=== PATIENT | female | born 1970 | race Caucasian/White ===

== ENCOUNTER → 2023-03-22 | Outpatient (CLI) | payer OTHER, MEDICAID, SELFPAY | END | disposition home or self-care (01) | LOC: PSN 10:27 | PROVIDERS: PCP Internal Medicine; Referring Provider Internal Medicine; Visit Provider Internal Medicine | DX: R00.2 Palpitations (principal) | CPT/HCPCS: 93225; 93226 ==

== ENCOUNTER → 2023-08-29 | Outpatient (CLI) | payer OTHER, MEDICAID, SELFPAY ==
--- NOTE | 2023-08-29 12:49 | ECHOD_ITS ---
Reason For Study: Palpitations Procedure This was a 2D Doppler, Color Flow transthoracic echocardiogram. Exam performed in department. Left Ventricle Normal LV size. Left ventricular systolic function is normal. The estimated ejection fraction is 65 %. Stage 1 diastolic dysfunction. No regional wall motion abnormalities noted. Right Ventricle Normal RV size. Normal systolic function. Atria Normal left atrium. Normal right atrium. Mitral Valve Normal mitral valve. Tricuspid Valve Normal tricuspid valve. Aortic Valve Normal aortic valve. Trisinus/trileaflet aortic valve. Pulmonic Valve Normal pulmonic valve. Great Vessels Normal aortic root. The pulmonary artery is normal size. Normal inferior vena cava. Pericardium/Pleural No pericardial effusion. MMode/2D Measurements & Calculations LVIDd: 4.3 cm IVSd: 1.0 cm Ao root diam: 3.0 cm LVIDs: 2.6 cm LVPWd: 1.00 cm RVDd: 2.8 cm FS: 39.5 % LAV(MOD-bp): 38.6 ml LVAd ap4: 23.5 cm2 SV(MOD-sp4): 37.5 ml LAV(MOD-bp) Indexed: 18.7 ml/m2 LVLd ap4: 7.6 cm LAV(MOD-sp2): 42.1 ml EDV(MOD-sp4): 57.9 ml LAV(MOD-sp4): 36.5 ml EDV(sp4-el): 61.7 ml LVAs ap4: 11.6 cm2 LVLs ap4: 5.7 cm ESV(MOD-sp4): 20.5 ml ESV(sp4-el): 20.3 ml EF(MOD-sp4): 64.7 % EF(sp4-el): 67.2 % SV(sp4-el): 41.4 ml LA A4 area: 15.2 cm2 LA dimension(2D): 3.8 cm RA A4 area: 10.4 cm2 Time Measurements MV dec time: 0.16 sec Doppler Measurements & Calculations MV E max des: 82.3 cm/sec Lat Peak E' Des: 11.0 cm/sec Med Peak E' Des: 7.6 cm/sec MV A max des: 89.7 cm/sec E/E' lat: 7.5 E/E' med: 10.8 MV E/A: 0.92 Ao V2 max: 165.7 cm/sec LV V1 max: 144.2 cm/sec MV dec slope: 530.8 cm/sec2 Ao max P.0 mmHg LV V1 max P.3 mmHg Ao V2 mean: 127.2 cm/sec LV V1 mean P.0 mmHg Ao mean P.8 mmHg LV V1 mean: 105.6 cm/sec Ao V2 VTI: 34.4 cm LV V1 VTI: 28.5 cm AV (velocity ratio): 0.83 PA V2 max: 97.4 cm/sec PI end-d des: 85.8 cm/sec ECHO/Echo Complete Interpretation Summary Normal LV size. Left ventricular systolic function is normal. The estimated ejection fraction is 65 %. Stage 1 diastolic dysfunction. Structurally normal valves. Ordering Physician: Yary Cardenas Referring Physician: Yary Cardenas Performed By: Elana Mathis, JESICA, RVT
--- OUTSIDE RECORDS SUMMARY | 2023-08-29 13:15 | XMS RPT_ITS | CCD ---
Author Name Unknown Address [address] [place] [address] Organization [facility] Care Team Providers Care Church History Professor Name Role Phone Yary Vargas Unavailable Anthony Hodgson Unavailable Gravius, Jayne Unavailable Unavailable Unavailable Unavailable Mar Wood Unavailable Unavailable Eleni Chavez Unavailable Unavailable Unavailable Unavailable No Family, Physician Primary Care Unavailable Yary Vargas DO Unavailable Dr. Anthony Hodgson Unavailable [phone] Analia Tolbert MA Unavailable Unavailable Gravius WARP PLACER, Jayne Unavailable Unavailable Slarb ZYGLO TECHNICIAN, Jada Unavailable Unavailable Unavailable Unavailable Yary Vargas DO Unavailable Emir ZYGLO TECHNICIAN, Caterina Unavailable Unavailable Katherine Schwartz MA Unavailable Unavailable Yary Vargas DO Attending Unavailable Yary Vargas DO Referring Unavailable Yary Vargas DO Consulting Unavailable Jason AMAYA, Erlin Unavailable Unavailable YARY VARGAS Primary Care Unavailab RACHAEL Camargo Attending Unavailable Ok AMAYA, Pako Unavailable Unavailable Yary Vargas DO Primary Care Provider RICARDA SALOMON Referring Unavailable YARY VARGAS Primary Care Unavailab true Allergies Allergy Classification Reported Allergen(s) Allergy Type Date of Onset Reaction(s) Facility (20 sources) Simvastatin; Translations: [Simvastatin *ANTIHYPERLIPID EMICS*] Drug Allergy Chest pain [facility] Work Phone: (3 sources) Chlorhexidine; Translations: [CHLORHEXIDINE GLUCONATE] Drug Allergy 06-23-20 20 Rash [facility] Repository (3 sources) Hmg-Coa Reductase Inhibitors (Statins); Translations: [[id number]-XD A REDUCTASE INHIBITORS] Propensity to adverse reactions to drug (disorder) 01-15-20 Other: See Comments [facility] Repository Medications Completed/Discontinued Medications Medication Drug Class(es) Dates Sig (Normalized) Sig (Original) [id number] 200 actuat albuterol 0.09 mg/actuat metered dose inhaler (20 sources) beta2-Adrenergic Agonist Start: 01-27-2016 End: 02-06-2016 PROAIR HFA, 108 (90 Base)MCG/ACT (Inhalation Aerosol Solution) 1 (one) Aerosol Soln every six hours, as needed for 10 days Quantity: 1 {Inhaler} Refills: 0 Ordered: 27-Jan-2016 Jesus Ta MD Start : 27-Jan-2016 End : 06-Feb-2016 Inactive Comments: Medication taken as needed. Problems Active Problems Problem Classification Problem Date Documented Da te Episodic/Chronic Abdominal pain (20 sources) Epigastric pain; Translations: [Acute epigastric pain] Resolved: 12-27-2016 12-27-2016 Episodic Anxiety disorders (20 sources) Acute stress disorder; Translations: [Stress reaction] 06-07-2020 Chronic Past or Other Problems Problem Classification Problem Date Documented Da te Episodic/Chronic Administrative/social admission (1 source) Drug indicated; Translations: [NSAID long-term use] 12-27-2016 Results Test Name Value Interpretation Reference Range Facil ity Vital Signs Date Time Vital Sign Value Performing Clinician Facility 03-05-2023 11:25-0400 Body height 165.1 cm [facility] Work Phone: 03-05-2023 11:25-0400 Body mass index (BMI) [Ratio] 37.3 kg/m2 [facility] Work Phone: 03-05-2023 11:25-0400 Body surface area Derived from formula 2.08 m2 [facility]; [facility] Work Phone: 03-05-2023 11:25-0400 Body temperature 97 [degF] [facility] Work Phone: 03-05-2023 11:25-0400 Body weight 101.66 kg [facility] Work Phone: 03-05-2023 11:25-0400 Diastolic blood pressure 80 mm[Hg] [facility]; [facility] Work Phone: Encounters Encounter Date Encounter Type Care Provider Facility Start: 04-12-2023 Documentation procedure Mammog everett Coordinator [facility] Start: 04-12-2023 Letter encounter Mammography Coordinator [facility] Department Start: 04-11-2023 End: 04-11-2023 ambulatory [facility] Facility:[facility] Start: 03-05-2023 End: 03-05-2023 Office outpatient visit 15 minutes Yary Milleron DO Work Phone: [facility] Start: 02-26-2023 End: 02-26-2023 Emergency department patient visit YARY VARGAS Facility:[facility] Start: 08-16-2022 End: 08-16-2022 Phone Encounter Yary Milleron DO Work Phone: [facility] Start: 07-20-2022 Review Yary Gaitan n DO Work Phone: [facility] Start: 07-20-2022 End: 08-19-2022 Office outpatient visit 10 minutes Yary Theresa DO Work Phone: [facility] Start: 07-10-2022 End: 07-10-2022 Phone Encounter Yary Milleron DO Work Phone: [facility] Start: 06-28-2022 ambulatory Yaryagapito Vargas DO [facility] Start: 06-26-2022 End: 06-26-2022 Patient encounter status Yaryagapito Milleron DO Work Phone: [facility] Start: 06-26-2022 End: 06-26-2022 Periodic preventive med est patient 40-64yrs Yary Theresa DO Work Phone: [facility] Start: 11-03-2021 End: 11-03-2021 Office outpatient visit 15 minutes Yary Vargas DO Work Phone: [facility] Start: 07-21-2021 Emergency department patient visit Physician Michelle Narvaez [facility] Start: 06-27-2021 End: 06-27-2021 Office outpatient visit 10 minutes Yary Vargas DO Work Phone: [facility] Start: 06-13-2021 End: 06-13-2021 Office outpatient visit 25 minutes Yary Vargas DO Work Phone: [facility] Start: 06-17-2020 End: 06-18-2020 Office outpatient visit 15 minutes Yary Theresa [facility] Start: 06-17-2020 Review Yary Vargas [facility] Start: 06-07-2020 End: 06-07-2020 Office outpatient new 30 minutes Yary Vargas [facility] Start: 12-27-2016 End: 12-27-2016 Office outpatient visit 15 minutes Yary Theresa [facility] Start: 12-21-2016 End: 12-21-2016 Office outpatient visit 25 minutes Yary Vargas [facility] Start: 05-05-2016 End: 05-05-2016 Office outpatient visit 25 minutes Yary Theresa [facility] Start: 01-27-2016 End: 01-27-2016 Patient encounter procedure Yary Vargas [facility] Start: 04-20-2015 End: 04-20-2015 Office outpatient visit 15 minutes Yary Vargas [facility] Start: 04-06-2015 End: 04-06-2015 Office outpatient new 30 minutes Yary Vargas [facility] Patient encounter status Yary Milleron DO Work Phone: [facility] Work Phone: Patient encounter status Erlin Gomez [facility] Work Phone: Patient encounter status Pako Euceda [facility] Work Phone: Procedures Date Procedure Procedure Detail Performing Clinician Start: 04-11-2023 Mammography Mammograph y Coordinator Annual Eye Exam 2012 Janye Gravyaquelin Annual Eye Exam 2012 [facility] Annual Eye Exam 2012 Eleni landa Annual Eye Exam 2012 Analia Tolbert MA Annual Eye Exam 2012 Caterina villegas LPN Annual Eye Exam 2012 Katherine Schwartz MA Annual Eye Exam 2012 Erlin Gomez LPN Annual Eye Exam 2012 Pako Ok ZYGLO TECHNICIAN Appendectomy Jayne Schmitz Plan of Treatment Date Care Activity Detail Author Start: 02-26-2026 DIABETES SCREEN DIABETES SCREEN [facility] Start: 04-11-[address] [facility] Start: 04-13-2023 Influenza vaccination INFLUENZA (#1) [facility] Start: 03-05-2023 Procedure Education Eprescribed prescriptions (G8553) [facility] Work Phone: Start: 03-05-2023 Provider Instructions for Treatment [facility] Work Phone: Start: 08-16-2022 Hepatic function panel HEPATIC FUNCTION PANEL (81816) [facility]; [facility] Work Phone: Start: 08-16-2022 Lipid panel LIPID PANEL (68412) [facility] Work Phone: Start: 08-13-2022 DEPRESSION ASSESSMENT DEPRESSION ASSESSMENT [facility] Start: 07-21-2022 Lipid panel LIPID PANEL (22986) [facility] Work Phone: Start: 07-21-2022 Provider Instructions for Treatment Reviewed Lab [facility]; [facility] Work Phone: Start: 07-20-2022 Procedure Education Eprescribed prescriptions (G8553) [facility]; [facility] Work Phone: Start: 07-20-2022 Provider Instructions for Treatment Reviewed [facility]; [facility] Work Phone: Start: 06-26-2022 Procedure Education Eprescribed prescriptions (G8553) [facility]; [facility] Work Phone: Start: 06-26-2022 25 hydroxy includes fractions if performed CALCIFEDIOL (99250) [facility]; [facility] Work Phone: Start: 06-26-2022 Assay of thyroid stimulating hormone tsh TSH (08440) [facility]; [facility] Work Phone: Start: 06-26-2022 Urnls dip stick/tablet reagent auto microscopy URINALYSIS, W/ MICRO (19426) [facility]; [facility] Work Phone: Start: 06-26-2022 Urine albumin quantitative MICROALBUMIN: CREATININE RATIO (99207) AND (11102) [facility]; [facility] Work Phone: Start: 06-26-2022 Comprehensive metabolic panel METABOLIC PANEL, COMPREHENSIVE (30965) [facility]; [facility] Work Phone: Start: 06-26-2022 Lipid panel LIPID PANEL (14121) [facility] Work Phone: Start: 06-26-2022 Blood count complete auto&auto difrntl wbc CBC W/AUTO DIFF WBC (55055) [facility]; [facility] Work Phone: Start: 11-03-2021 Procedure Education Eprescribed prescriptions (G8553) [facility]; [facility] Work Phone: Start: 11-03-2021 Provider Instructions for Treatment [facility]; [facility] Work Phone: Start: 06-27-2021 Procedure Education Eprescribed prescriptions (G8553) [facility]; [facility] Work Phone: Start: 06-27-2021 Provider Instructions for Treatment [facility]; [facility] Work Phone: Start: 06-13-2021 Procedure Education Eprescribed prescriptions (G8553) [facility]; [facility] Work Phone: Start: 06-13-2021 Provider Instructions for Treatment [facility]; [facility] Work Phone: Start: 06-13-2021 Oncology colorectal screening shauna 10 dna markrs Cologuard - Strool Based DNA Test, CRC SCREEN (20161) [facility]; [facility] Work Phone: Start: 12-22-2020 COVID-19 VACCINE (2 - Moderna series) COVID-19 VACCINE (2 - Moderna series) [facility] Start: 2020 SHINGRIX VACCINE (1 of 2) SHINGRIX VACCINE (1 of 2) [facility] Start: 06-17-2020 Procedure Education Eprescribed prescriptions (G8553) [facility] Work Phone: Start: 06-17-2020 Provider Instructions for Treatment Reviewed Lab [facility] Work Phone: Start: 06-17-2020 Lipid panel LIPID PANEL (51049) [facility] Work Phone: Start: 06-17-2020 25 hydroxy includes fractions if performed CALCIFIDIOL (44000) VIT D 25 [facility] Work Phone: Start: 06-17-2020 Hepatic function panel HEPATIC FUNCTION PANEL (19022) [facility] Work Phone: Start: 06-07-2020 Procedure Education Eprescribed prescriptions (G8553) [facility] Work Phone: Start: 06-07-2020 Provider Instructions for Treatment [facility] Work Phone: Start: 06-07-2020 TSH Qn TSH (36769) [facility] Work Phone: Start: 06-07-2020 Urnls dip stick/tablet reagent auto microscopy URINALYSIS, W/ MICRO (55486) [facility] Work Phone: Start: 06-07-2020 Urine albumin quantitative MICROALBUMIN: CREATININE RATIO (57366) AND (94570) [facility] Work Phone: Start: 06-07-2020 Comprehensive metabolic panel METABOLIC PANEL, COMPREHENSIVE (21120) [facility] Work Phone: Start: 06-07-2020 Blood count complete auto&auto difrntl wbc CBC W/AUTO DIFF WBC (88563) [facility] Work Phone: Start: 06-07-2020 Lipid panel LIPID PANEL (67991) [facility] Work Phone: Start: 06-07-2020 25 hydroxy includes fractions if performed CALCIFEDIOL (40355) [facility] Work Phone: Start: 12-27-2016 Provider Instructions for Treatment [facility] Work Phone: Start: 12-21-2016 Patient Education Chest Pain, Noncardiac: chest pain [facility] Work Phone: Start: 12-21-2016 Provider Instructions for Treatment [facility] Work Phone: Start: 05-05-2016 Patient Education Flu (Influenza) *: flu shot [facility] Work Phone: Start: 05-05-2016 Procedure Education Eprescribed prescriptions (G8553) [facility] Work Phone: Start: 05-05-2016 Provider Instructions for Treatment [facility] Work Phone: Start: 01-27-2016 Procedure Education Eprescribed prescriptions (G8553) [facility] Work Phone: Start: 01-27-2016 Provider Instructions for Treatment [facility] Work Phone: Start: 2015 COLOGUARD (FIT-DNA) COLOGUARD (FIT-DNA) [facility] Start: [address] [facility] Start: 2015 COLORECTAL CANCER SCREENING COLORECTAL CANCER SCREENING [facility] Start: [address] [facility] Start: 2015 FECAL OCCULT BLOOD FECAL OCCULT BLOOD [facility] Start: 2015 LIPID SCREEN LIPID SCREEN [facility] Start: [address] [facility] Start: 04-20-2015 Procedure Education Eprescribed prescriptions (G8553) [facility] Work Phone: Start: 04-20-2015 Provider Instructions for Treatment [facility] Work Phone: Start: 04-06-2015 Procedure Education Eprescribed prescriptions (G8553) [facility] Work Phone: Start: 04-06-2015 Provider Instructions for Treatment [facility] Work Phone: Start: 2000 HPV TEST[address] TESTING [facility] Start: 1991 PAP TESTING PAP TESTING [facility] Start: 1989 Urine microalbumin profile DTAP,TDAP,TD (1 - Tdap) [facility] Start: 1988 HEPATITIS C SCREENING HEPATITIS C SCREENING [facility] Start: 1988 HIV SCREENING HIV SCREENING [facility] Start: 1970 HEPATITIS B (1 of 3 - 3-dose series) HEPATITIS B (1 of 3 - 3-dose series) [facility] Work Phone: [facility] Work Phone: [facility] Work Phone: [facility] Work Phone: [facility] Work Phone: [facility] Work Phone: [facility] Work Phone: [facility] Work Phone: [facility] Work Phone: [facility] Work Phone: [facility] Work Phone: [facility] Work Phone: Immunizations Immunization Date Immunization Notes Care Provider Teresa [facility] 06-25-2022 influenza, injectabl e, quadrivalent, preservative free Yary Vargas DO Work Phone: [facility]; [facility] Work Phone: Payers Date Payer Category Payer Private Health Insurance [facility] [employer] [id number] 2022-Present [phone] [address] [place] [address] HMO [id number] 2021 Private Health Insurance [id number] 2020 Unknown [id number] 1970 Unknown [id number] Unknown Social History Date Type Detail Facility Exercise History: Exercise History: [facility] Work Phone: Start: 02-26-2023 End: 02-27-2023 Living Situation Living Situation [facility] Work Phone: Clinical Notes 01-13-2021 to 04-12-2023 Letter - Coordinator, Mammography - 04/12/2023 7:38 AM EDT Note Date & Type Note Facility 04-12-2023 Miscellaneous Notes April 12, 2023 PID: [id number] Soha Sol [address] [place] [address] Dear Ms. Sol, We are pleased to inform you that the results of your recent breast imaging exam on 04/11/2023 are normal. Early detection of cancer is very important. We also understand recommendations regarding breast cancer screening are controversial. Please discuss with your primary care provider which strategy is best for you and whether a mammogram is right for you. Your imaging studies and report will be kept on file at [facility] as part of your permanent medical record and are available for your continuing care. Thank you for allowing us to help in meeting your health care needs. Sincerely, Dr. Holman Interpreting Radiologist [facility] (Normal over 40) documented in this encounter [facility] 04-11-2023 Note HNO ID: [id number] Author: Judi Pepper RT(R) Service: ? Author Type: Technologist Type: Progress Notes Filed: 04/11/2023 3:51 PM Note Text: Radiology Service Progress Note PATIENT NAME: Soha Sol DATE OF SERVICE: April 11, 2023 TIME: 3:50 PM PATIENT IDENTITY VERIFICATION COMPLETED USING TWO (2) IDENTIFIERS: Name and Date of confirmed by patient verbally. FALL SCREENING: Has the patient had 2 falls in the last year or 1 fall with injury or currently using an Ambulatory Assistive Device (Walker, Cane, Wheelchair, Crutches, etc.)? No PATIENT GENDER DATA: Female. status: : No status: NO. PATIENT RELEVANT IMPLANT DATA REVIEWED: Yes RADIOLOGY DEPARTMENT: Mammography PERIPHERAL IV DATA: Not applicable SIGNED BY: RT William(R) April 11, 2023 3:50 PM [facility] 07-21-2021 Note HNO ID: [id number] Author: BIJAN Culver Service: Radiology Author Type: Technologist Type: Progress Notes Filed: 07/21/2021 2:35 PM Note Text: Radiology Service Progress Note PATIENT NAME: Soha Sol DATE OF SERVICE: July 21, 2021 TIME: 2:35 PM PATIENT IDENTITY VERIFICATION COMPLETED USING TWO (2) IDENTIFIERS: Name and Date of confirmed by patient verbally. FALL SCREENING: Has the patient had 2 falls in the last year or 1 fall with injury or currently using an Ambulatory Assistive Device (Walker, Cane, Wheelchair, Crutches, etc.)? No PATIENT GENDER DATA: Female. status: : No status: NO. PATIENT RELEVANT IMPLANT DATA REVIEWED: Not Applicable RADIOLOGY DEPARTMENT: Mammography PERIPHERAL IV DATA: Not applicable SIGNED BY: BIJAN Culver July 21, 2021 2:35 PM [facility] 03-25-2021 Note HNO ID: [id number] Author: BIJAN Louis Service: Radiology Author Type: Automotive Engineering Teacher Type: Progress Notes Filed: 03/25/2021 5:20 PM Note Text: Radiology Service Progress Note PATIENT NAME: Soha Sol DATE OF SERVICE: March 25, 2021 TIME: 5:19 PM PATIENT IDENTITY VERIFICATION COMPLETED USING TWO (2) IDENTIFIERS: Name and Date of confirmed by patient verbally. FALL SCREENING: Has the patient had 2 falls in the last year or 1 fall with injury or currently using an Ambulatory Assistive Device (Walker, Cane, Wheelchair, Crutches, etc.)? No PATIENT GENDER DATA: Female. status: : No status: NO. PATIENT RELEVANT IMPLANT DATA REVIEWED: Yes RADIOLOGY DEPARTMENT: MR; Exam(s) Completed: Lower MSK: Knee, left PERIPHERAL IV DATA: Not applicable SIGNED BY: BIJAN Louis March 25, 2021 5:19 PM [facility] 01-13-2021 Note HNO ID: [id number] Author: BIJAN Curiel Service: Radiology Author Type: Clinical Automotive Engineering Teacher Type: Progress Notes Filed: 01/13/2021 9:20 AM Note Text: Radiology Service Progress Note PATIENT NAME: Soha Sol DATE OF SERVICE: January 13, 2021 TIME: 9:20 AM PATIENT IDENTITY VERIFICATION COMPLETED USING TWO (2) IDENTIFIERS: Name and Date of confirmed by patient verbally and Name and Date of confirmed by identification band. FALL SCREENING: Has the patient had 2 falls in the last year or 1 fall with injury or currently using an Ambulatory Assistive Device (Walker, Cane, Wheelchair, Crutches, etc.)? Yes, Patient High Risk for Falls What interventions were put in place to prevent falls during this visit? Instructed Patient to Call for Help if Needed, Offered Assistance with Transfers/Clothing, Instructed Patient to Remain Seated (Not on Exam Table) Until Exam, and Increased Observations by Caregivers PATIENT GENDER DATA: Female. status: : No status: NO. PATIENT RELEVANT IMPLANT DATA REVIEWED: Not Applicable RADIOLOGY DEPARTMENT: Ultrasound PERIPHERAL IV DATA: Not applicable SIGNED BY: BIJAN Curiel January 13, 2021 9:20 AM [facility] 01-13-2021 Note HNO ID: [id number] Author: BIJAN Card Service: Radiology Author Type: Clinical Automotive Engineering Teacher Type: Progress Notes Filed: 01/13/2021 8:40 AM Note Text: Radiology Service Progress Note PATIENT NAME: Soha Sol DATE OF SERVICE: January 13, 2021 TIME: 8:39 AM PATIENT IDENTITY VERIFICATION COMPLETED USING TWO (2) IDENTIFIERS: Name and Date of confirmed by patient verbally. FALL SCREENING: Has the patient had 2 falls in the last year or 1 fall with injury or currently using an Ambulatory Assistive Device (Walker, Cane, Wheelchair, Crutches, etc.)? Yes, Patient High Risk for Falls What interventions were put in place to prevent falls during this visit? Offered Assistance with Transfers/Clothing and Increased Observations by Caregivers PATIENT GENDER DATA: Female. status: : No status: NO. PATIENT RELEVANT IMPLANT DATA REVIEWED: Not Applicable RADIOLOGY DEPARTMENT: General X-ray: Exam(s) Completed: Pelvis X-Ray: Pelvis with Hip Left and Wt. Bearing PERIPHERAL IV DATA: Not applicable SIGNED BY: BIJAN Card January 13, 2021 8:39 AM [facility] Work Phone: Instructions* Name Dates Details How to Access Health Informa tion Online using Patient Portal and [employer] Apps Indication:BMI 38.0-38.9,adult Start:03-Nov-2021 Instruction Type:Patient Education Patient Instructions Indication:BMI 38.0-38.9,adult Start:03-Nov-2021 Instruction Type:Provider Instructions for Treatment Patient Instructions Indication:Non-smoker Start:27-Jun-2021 Instruction Type:Provider Instructions for Treatment How to Access Health Informa tion Online using Patient Portal and [employer] Apps Indication:Non-smoker Start:27-Jun-2021 Instruction Type:Patient Education Patient Instructions Indication:BMI 38.0-38.9,adult Start:13-Jun-2021 Instruction Type:Provider Instructions for Treatment How to Access Health Informa tion Online using Patient Portal and [employer] Apps Indication:BMI 38.0-38.9,adult Start:13-Jun-2021 Instruction Type:Patient Education How to access health informa tion online Indication:Non-smoker Start:17-Jun-2020 Instruction Type:Patient Education How to access health informa tion online - Detail Indication:Non-smoker Start:17-Jun-2020 Instruction Type:Patient Education Patient Instructions Indication:Non-smoker Start:17-Jun-2020 Instruction Type:Provider Instructions for Treatment How to access health informa tion online Indication:Non-smoker Start:07-Jun-2020 Instruction Type:Patient Education How to access health informa tion online - Detail Indication:Non-smoker Start:07-Jun-2020 Instruction Type:Patient Education Patient Instructions Indication:Non-smoker Start:07-Jun-2020 Instruction Type:Provider Instructions for Treatment How to access health informa tion online Indication:Non-smoker Start:27-Dec-2016 Instruction Type:Patient Education How to access health informa tion online - Detail Indication:Non-smoker Start:27-Dec-2016 Instruction Type:Patient Education Patient Instructions Indication:Non-smoker Start:27-Dec-2016 Instruction Type:Provider Instructions for Treatment How to access health informa tion online Indication:Chest pain at rest Start:21-Dec-2016 Instruction Type:Patient Education How to access health informa tion online - Detail Indication:Chest pain at rest Start:21-Dec-2016 Instruction Type:Patient Education Patient Instructions Indication:Chest pain at rest Start:21-Dec-2016 Instruction Type:Provider Instructions for Treatment How to access health informa tion online Indication:GERD (gastroesophageal reflux disease) Start:05-May-2016 Instruction Type:Patient Education How to access health informa tion online - Detail Indication:GERD (gastroesophageal reflux disease) Start:05-May-2016 Instruction Type:Patient Education Patient Instructions Indication:GERD (gastroesophageal reflux disease) Start:05-May-2016 Instruction Type:Provider Instructions for Treatment How to access health informa tion online Indication:Cough Start:27-Jan-2016 Instruction Type:Patient Education How to access health informa tion online - Detail Indication:Cough Start:27-Jan-2016 Instruction Type:Patient Education Patient Instructions Indication:Cough Start:27-Jan-2016 Instruction Type:Provider Instructions for Treatment How to access health informa tion online Indication:Obesity Start:20-Apr-2015 Instruction Type:Patient Education How to access health informa tion online - Detail Indication:Obesity Start:20-Apr-2015 Instruction Type:Patient Education Patient Instructions Indication:Obesity Start:20-Apr-2015 Instruction Type:Provider Instructions for Treatment How to access health informa tion online Indication:Hypertension Start:06-Apr-2015 Instruction Type:Patient Education How to access health informa tion online - Detail Indication:Hypertension Start:06-Apr-2015 Instruction Type:Patient Education Patient Instructions Indication:Hypertension Start:06-Apr-2015 Instruction Type:Provider Instructions for Treatment [facility]; [facility] Work Phone: Instructions* Name Dates Details Patient Instructions Indication:Non-smoker Start:26-Jun-2022 Instruction Type:Provider Instructions for Treatment How to Access Health Informa tion Online using Patient Portal and [employer] Apps Indication:Non-smoker Start:26-Jun-2022 Instruction Type:Patient Education How to Access Health Informa tion Online using Patient Portal and [employer] Apps Indication:BMI 38.0-38.9,adult Start:03-Nov-2021 Instruction Type:Patient Education Patient Instructions Indication:BMI 38.0-38.9,adult Start:03-Nov-2021 Instruction Type:Provider Instructions for Treatment Patient Instructions Indication:Non-smoker Start:27-Jun-2021 Instruction Type:Provider Instructions for Treatment How to Access Health Informa tion Online using Patient Portal and [employer] Apps Indication:Non-smoker Start:27-Jun-2021 Instruction Type:Patient Education Patient Instructions Indication:BMI 38.0-38.9,adult Start:13-Jun-2021 Instruction Type:Provider Instructions for Treatment How to Access Health Informa tion Online using Patient Portal and [employer] Apps Indication:BMI 38.0-38.9,adult Start:13-Jun-2021 Instruction Type:Patient Education How to access health informa tion online Indication:Non-smoker Start:17-Jun-2020 Instruction Type:Patient Education How to access health informa tion online - Detail Indication:Non-smoker Start:17-Jun-2020 Instruction Type:Patient Education Patient Instructions Indication:Non-smoker Start:17-Jun-2020 Instruction Type:Provider Instructions for Treatment How to access health informa tion online Indication:Non-smoker Start:07-Jun-2020 Instruction Type:Patient Education How to access health informa tion online - Detail Indication:Non-smoker Start:07-Jun-2020 Instruction Type:Patient Education Patient Instructions Indication:Non-smoker Start:07-Jun-2020 Instruction Type:Provider Instructions for Treatment How to access health informa tion online Indication:Non-smoker Start:27-Dec-2016 Instruction Type:Patient Education How to access health informa tion online - Detail Indication:Non-smoker Start:27-Dec-2016 Instruction Type:Patient Education Patient Instructions Indication:Non-smoker Start:27-Dec-2016 Instruction Type:Provider Instructions for Treatment How to access health informa tion online Indication:Chest pain at rest Start:21-Dec-2016 Instruction Type:Patient Education How to access health informa tion online - Detail Indication:Chest pain at rest Start:21-Dec-2016 Instruction Type:Patient Education Patient Instructions Indication:Chest pain at rest Start:21-Dec-2016 Instruction Type:Provider Instructions for Treatment How to access health informa tion online Indication:GERD (gastroesophageal reflux disease) Start:05-May-2016 Instruction Type:Patient Education How to access health informa tion online - Detail Indication:GERD (gastroesophageal reflux disease) Start:05-May-2016 Instruction Type:Patient Education Patient Instructions Indication:GERD (gastroesophageal reflux disease) Start:05-May-2016 Instruction Type:Provider Instructions for Treatment How to access health informa tion online Indication:Cough Start:27-Jan-2016 Instruction Type:Patient Education How to access health informa tion online - Detail Indication:Cough Start:27-Jan-2016 Instruction Type:Patient Education Patient Instructions Indication:Cough Start:27-Jan-2016 Instruction Type:Provider Instructions for Treatment How to access health informa tion online Indication:Obesity Start:20-Apr-2015 Instruction Type:Patient Education How to access health informa tion online - Detail Indication:Obesity Start:20-Apr-2015 Instruction Type:Patient Education Patient Instructions Indication:Obesity Start:20-Apr-2015 Instruction Type:Provider Instructions for Treatment How to access health informa tion online Indication:Hypertension Start:06-Apr-2015 Instruction Type:Patient Education How to access health informa tion online - Detail Indication:Hypertension Start:06-Apr-2015 Instruction Type:Patient Education Patient Instructions Indication:Hypertension Start:06-Apr-2015 Instruction Type:Provider Instructions for Treatment [facility]; [facility] Work Phone: Instructions* Name Dates Details Patient Instructions Indication:Non-smoker Start:26-Jun-2022 Instruction Type:Provider Instructions for Treatment How to Access Health Informa tion Online using Patient Portal and [employer] Apps Indication:Non-smoker Start:26-Jun-2022 Instruction Type:Patient Education How to Access Health Informa tion Online using Patient Portal and [employer] Apps Indication:BMI 38.0-38.9,adult Start:03-Nov-2021 Instruction Type:Patient Education Patient Instructions Indication:BMI 38.0-38.9,adult Start:03-Nov-2021 Instruction Type:Provider Instructions for Treatment Patient Instructions Indication:Non-smoker Start:27-Jun-2021 Instruction Type:Provider Instructions for Treatment How to Access Health Informa tion Online using Patient Portal and [employer] Apps Indication:Non-smoker Start:27-Jun-2021 Instruction Type:Patient Education Patient Instructions Indication:BMI 38.0-38.9,adult Start:13-Jun-2021 Instruction Type:Provider Instructions for Treatment How to Access Health Informa tion Online using Patient Portal and [employer] Apps Indication:BMI 38.0-38.9,adult Start:13-Jun-2021 Instruction Type:Patient Education How to access health informa tion online Indication:Non-smoker Start:17-Jun-2020 Instruction Type:Patient Education How to access health informa tion online - Detail Indication:Non-smoker Start:17-Jun-2020 Instruction Type:Patient Education Patient Instructions Indication:Non-smoker Start:17-Jun-2020 Instruction Type:Provider Instructions for Treatment How to access health informa tion online Indication:Non-smoker Start:07-Jun-2020 Instruction Type:Patient Education How to access health informa tion online - Detail Indication:Non-smoker Start:07-Jun-2020 Instruction Type:Patient Education Patient Instructions Indication:Non-smoker Start:07-Jun-2020 Instruction Type:Provider Instructions for Treatment How to access health informa tion online Indication:Non-smoker Start:27-Dec-2016 Instruction Type:Patient Education How to access health informa tion online - Detail Indication:Non-smoker Start:27-Dec-2016 Instruction Type:Patient Education Patient Instructions Indication:Non-smoker Start:27-Dec-2016 Instruction Type:Provider Instructions for Treatment How to access health informa tion online Indication:Chest pain at rest Start:21-Dec-2016 Instruction Type:Patient Education How to access health informa tion online - Detail Indication:Chest pain at rest Start:21-Dec-2016 Instruction Type:Patient Education Patient Instructions Indication:Chest pain at rest Start:21-Dec-2016 Instruction Type:Provider Instructions for Treatment How to access health informa tion online Indication:GERD (gastroesophageal reflux disease) Start:05-May-2016 Instruction Type:Patient Education How to access health informa tion online - Detail Indication:GERD (gastroesophageal reflux disease) Start:05-May-2016 Instruction Type:Patient Education Patient Instructions Indication:GERD (gastroesophageal reflux disease) Start:05-May-2016 Instruction Type:Provider Instructions for Treatment How to access health informa tion online Indication:Cough Start:27-Jan-2016 Instruction Type:Patient Education How to access health informa tion online - Detail Indication:Cough Start:27-Jan-2016 Instruction Type:Patient Education Patient Instructions Indication:Cough Start:27-Jan-2016 Instruction Type:Provider Instructions for Treatment How to access health informa tion online Indication:Obesity Start:20-Apr-2015 Instruction Type:Patient Education How to access health informa tion online - Detail Indication:Obesity Start:20-Apr-2015 Instruction Type:Patient Education Patient Instructions Indication:Obesity Start:20-Apr-2015 Instruction Type:Provider Instructions for Treatment How to access health informa tion online Indication:Hypertension Start:06-Apr-2015 Instruction Type:Patient Education How to access health informa tion online - Detail Indication:Hypertension Start:06-Apr-2015 Instruction Type:Patient Education Patient Instructions Indication:Hypertension Start:06-Apr-2015 Instruction Type:Provider Instructions for Treatment [facility]; [facility] Work Phone: Instructions* Name Dates Details Patient Instructions Indication:BMI 37.0-37.9, adult Start:20-Jul-2022 Instruction Type:Provider Instructions for Treatment How to Access Health Informa tion Online using Patient Portal and [employer] Apps Indication:BMI 37.0-37.9, adult Start:20-Jul-2022 Instruction Type:Patient Education Patient Instructions Indication:Non-smoker Start:26-Jun-2022 Instruction Type:Provider Instructions for Treatment How to Access Health Informa tion Online using Patient Portal and [employer] Apps Indication:Non-smoker Start:26-Jun-2022 Instruction Type:Patient Education How to Access Health Informa tion Online using Patient Portal and [employer] Apps Indication:BMI 38.0-38.9,adult Start:03-Nov-2021 Instruction Type:Patient Education Patient Instructions Indication:BMI 38.0-38.9,adult Start:03-Nov-2021 Instruction Type:Provider Instructions for Treatment Patient Instructions Indication:Non-smoker Start:27-Jun-2021 Instruction Type:Provider Instructions for Treatment How to Access Health Informa tion Online using Patient Portal and [employer] Apps Indication:Non-smoker Start:27-Jun-2021 Instruction Type:Patient Education Patient Instructions Indication:BMI 38.0-38.9,adult Start:13-Jun-2021 Instruction Type:Provider Instructions for Treatment How to Access Health Informa tion Online using Patient Portal and [employer] Apps Indication:BMI 38.0-38.9,adult Start:13-Jun-2021 Instruction Type:Patient Education How to access health informa tion online Indication:Non-smoker Start:17-Jun-2020 Instruction Type:Patient Education How to access health informa tion online - Detail Indication:Non-smoker Start:17-Jun-2020 Instruction Type:Patient Education Patient Instructions Indication:Non-smoker Start:17-Jun-2020 Instruction Type:Provider Instructions for Treatment How to access health informa tion online Indication:Non-smoker Start:07-Jun-2020 Instruction Type:Patient Education How to access health informa tion online - Detail Indication:Non-smoker Start:07-Jun-2020 Instruction Type:Patient Education Patient Instructions Indication:Non-smoker Start:07-Jun-2020 Instruction Type:Provider Instructions for Treatment How to access health informa tion online Indication:Non-smoker Start:27-Dec-2016 Instruction Type:Patient Education How to access health informa tion online - Detail Indication:Non-smoker Start:27-Dec-2016 Instruction Type:Patient Education Patient Instructions Indication:Non-smoker Start:27-Dec-2016 Instruction Type:Provider Instructions for Treatment How to access health informa tion online Indication:Chest pain at rest Start:21-Dec-2016 Instruction Type:Patient Education How to access health informa tion online - Detail Indication:Chest pain at rest Start:21-Dec-2016 Instruction Type:Patient Education Patient Instructions Indication:Chest pain at rest Start:21-Dec-2016 Instruction Type:Provider Instructions for Treatment How to access health informa tion online Indication:GERD (gastroesophageal reflux disease) Start:05-May-2016 Instruction Type:Patient Education How to access health informa tion online - Detail Indication:GERD (gastroesophageal reflux disease) Start:05-May-2016 Instruction Type:Patient Education Patient Instructions Indication:GERD (gastroesophageal reflux disease) Start:05-May-2016 Instruction Type:Provider Instructions for Treatment How to access health informa tion online Indication:Cough Start:27-Jan-2016 Instruction Type:Patient Education How to access health informa tion online - Detail Indication:Cough Start:27-Jan-2016 Instruction Type:Patient Education Patient Instructions Indication:Cough Start:27-Jan-2016 Instruction Type:Provider Instructions for Treatment How to access health informa tion online Indication:Obesity Start:20-Apr-2015 Instruction Type:Patient Education How to access health informa tion online - Detail Indication:Obesity Start:20-Apr-2015 Instruction Type:Patient Education Patient Instructions Indication:Obesity Start:20-Apr-2015 Instruction Type:Provider Instructions for Treatment How to access health informa tion online Indication:Hypertension Start:06-Apr-2015 Instruction Type:Patient Education How to access health informa tion online - Detail Indication:Hypertension Start:06-Apr-2015 Instruction Type:Patient Education Patient Instructions Indication:Hypertension Start:06-Apr-2015 Instruction Type:Provider Instructions for Treatment [facility]; [facility] Work Phone: Instructions* Name Dates Details Patient Instructions Indication:BMI 37.0-37.9, adult Start:20-Jul-2022 Instruction Type:Provider Instructions for Treatment How to Access Health Informa tion Online using Patient Portal and [employer] Indication:BMI 37.0-37.9, adult Start:20-Jul-2022 Instruction Type:Patient Education Patient Instructions Indication:Non-smoker Start:26-Jun-2022 Instruction Type:Provider Instructions for Treatment How to Access Health Informa tion Online using Patient Portal and [employer] Indication:Non-smoker Start:26-Jun-2022 Instruction Type:Patient Education How to Access Health Informa tion Online using Patient Portal and [employer] Apps Indication:BMI 38.0-38.9,adult Start:03-Nov-2021 Instruction Type:Patient Education Patient Instructions Indication:BMI 38.0-38.9,adult Start:03-Nov-2021 Instruction Type:Provider Instructions for Treatment Patient Instructions Indication:Non-smoker Start:27-Jun-2021 Instruction Type:Provider Instructions for Treatment How to Access Health Informa tion Online using Patient Portal and [employer] Indication:Non-smoker Start:27-Jun-2021 Instruction Type:Patient Education Patient Instructions Indication:BMI 38.0-38.9,adult Start:13-Jun-2021 Instruction Type:Provider Instructions for Treatment How to Access Health Informa tion Online using Patient Portal and [employer] Indication:BMI 38.0-38.9,adult Start:13-Jun-2021 Instruction Type:Patient Education How to access health informa tion online Indication:Non-smoker Start:17-Jun-2020 Instruction Type:Patient Education How to access health informa tion online - Detail Indication:Non-smoker Start:17-Jun-2020 Instruction Type:Patient Education Patient Instructions Indication:Non-smoker Start:17-Jun-2020 Instruction Type:Provider Instructions for Treatment How to access health informa tion online Indication:Non-smoker Start:07-Jun-2020 Instruction Type:Patient Education How to access health informa tion online - Detail Indication:Non-smoker Start:07-Jun-2020 Instruction Type:Patient Education Patient Instructions Indication:Non-smoker Start:07-Jun-2020 Instruction Type:Provider Instructions for Treatment How to access health informa tion online Indication:Non-smoker Start:27-Dec-2016 Instruction Type:Patient Education How to access health informa tion online - Detail Indication:Non-smoker Start:27-Dec-2016 Instruction Type:Patient Education Patient Instructions Indication:Non-smoker Start:27-Dec-2016 Instruction Type:Provider Instructions for Treatment How to access health informa tion online Indication:Chest pain at rest Start:21-Dec-2016 Instruction Type:Patient Education How to access health informa tion online - Detail Indication:Chest pain at rest Start:21-Dec-2016 Instruction Type:Patient Education Patient Instructions Indication:Chest pain at rest Start:21-Dec-2016 Instruction Type:Provider Instructions for Treatment How to access health informa tion online Indication:GERD (gastroesophageal reflux disease) Start:05-May-2016 Instruction Type:Patient Education How to access health informa tion online - Detail Indication:GERD (gastroesophageal reflux disease) Start:05-May-2016 Instruction Type:Patient Education Patient Instructions Indication:GERD (gastroesophageal reflux disease) Start:05-May-2016 Instruction Type:Provider Instructions for Treatment How to access health informa tion online Indication:Cough Start:27-Jan-2016 Instruction Type:Patient Education How to access health informa tion online - Detail Indication:Cough Start:27-Jan-2016 Instruction Type:Patient Education Patient Instructions Indication:Cough Start:27-Jan-2016 Instruction Type:Provider Instructions for Treatment How to access health informa tion online Indication:Obesity Start:20-Apr-2015 Instruction Type:Patient Education How to access health informa tion online - Detail Indication:Obesity Start:20-Apr-2015 Instruction Type:Patient Education Patient Instructions Indication:Obesity Start:20-Apr-2015 Instruction Type:Provider Instructions for Treatment How to access health informa tion online Indication:Hypertension Start:06-Apr-2015 Instruction Type:Patient Education How to access health informa tion online - Detail Indication:Hypertension Start:06-Apr-2015 Instruction Type:Patient Education Patient Instructions Indication:Hypertension Start:06-Apr-2015 Instruction Type:Provider Instructions for Treatment [facility]; [facility] Work Phone: Instructions* Name Dates Details Patient Instructions Indication:BMI 37.0-37.9, adult Start:20-Jul-2022 Instruction Type:Provider Instructions for Treatment How to Access Health Informa tion Online using Patient Portal and [employer] Indication:BMI 37.0-37.9, adult Start:20-Jul-2022 Instruction Type:Patient Education Patient Instructions Indication:Non-smoker Start:26-Jun-2022 Instruction Type:Provider Instructions for Treatment How to Access Health Informa tion Online using Patient Portal and [employer] Indication:Non-smoker Start:26-Jun-2022 Instruction Type:Patient Education How to Access Health Informa tion Online using Patient Portal and [employer] Indication:BMI 38.0-38.9,adult Start:03-Nov-2021 Instruction Type:Patient Education Patient Instructions Indication:BMI 38.0-38.9,adult Start:03-Nov-2021 Instruction Type:Provider Instructions for Treatment Patient Instructions Indication:Non-smoker Start:27-Jun-2021 Instruction Type:Provider Instructions for Treatment How to Access Health Informa tion Online using Patient Portal and [employer] Indication:Non-smoker Start:27-Jun-2021 Instruction Type:Patient Education Patient Instructions Indication:BMI 38.0-38.9,adult Start:13-Jun-2021 Instruction Type:Provider Instructions for Treatment How to Access Health Informa tion Online using Patient Portal and [employer] Indication:BMI 38.0-38.9,adult Start:13-Jun-2021 Instruction Type:Patient Education How to access health informa tion online Indication:Non-smoker Start:17-Jun-2020 Instruction Type:Patient Education How to access health informa tion online - Detail Indication:Non-smoker Start:17-Jun-2020 Instruction Type:Patient Education Patient Instructions Indication:Non-smoker Start:17-Jun-2020 Instruction Type:Provider Instructions for Treatment How to access health informa tion online Indication:Non-smoker Start:07-Jun-2020 Instruction Type:Patient Education How to access health informa tion online - Detail Indication:Non-smoker Start:07-Jun-2020 Instruction Type:Patient Education Patient Instructions Indication:Non-smoker Start:07-Jun-2020 Instruction Type:Provider Instructions for Treatment How to access health informa tion online Indication:Non-smoker Start:27-Dec-2016 Instruction Type:Patient Education How to access health informa tion online - Detail Indication:Non-smoker Start:27-Dec-2016 Instruction Type:Patient Education Patient Instructions Indication:Non-smoker Start:27-Dec-2016 Instruction Type:Provider Instructions for Treatment How to access health informa tion online Indication:Chest pain at rest Start:21-Dec-2016 Instruction Type:Patient Education How to access health informa tion online - Detail Indication:Chest pain at rest Start:21-Dec-2016 Instruction Type:Patient Education Patient Instructions Indication:Chest pain at rest Start:21-Dec-2016 Instruction Type:Provider Instructions for Treatment How to access health informa tion online Indication:GERD (gastroesophageal reflux disease) Start:05-May-2016 Instruction Type:Patient Education How to access health informa tion online - Detail Indication:GERD (gastroesophageal reflux disease) Start:05-May-2016 Instruction Type:Patient Education Patient Instructions Indication:GERD (gastroesophageal reflux disease) Start:05-May-2016 Instruction Type:Provider Instructions for Treatment How to access health informa tion online Indication:Cough Start:27-Jan-2016 Instruction Type:Patient Education How to access health informa tion online - Detail Indication:Cough Start:27-Jan-2016 Instruction Type:Patient Education Patient Instructions Indication:Cough Start:27-Jan-2016 Instruction Type:Provider Instructions for Treatment How to access health informa tion online Indication:Obesity Start:20-Apr-2015 Instruction Type:Patient Education How to access health informa tion online - Detail Indication:Obesity Start:20-Apr-2015 Instruction Type:Patient Education Patient Instructions Indication:Obesity Start:20-Apr-2015 Instruction Type:Provider Instructions for Treatment How to access health informa tion online Indication:Hypertension Start:06-Apr-2015 Instruction Type:Patient Education How to access health informa tion online - Detail Indication:Hypertension Start:06-Apr-2015 Instruction Type:Patient Education Patient Instructions Indication:Hypertension Start:06-Apr-2015 Instruction Type:Provider Instructions for Treatment [facility]; [facility] Work Phone: Instructions* Name Dates Details Patient Instructions Indication:BMI 37.0-37.9, adult Start:20-Jul-2022 Instruction Type:Provider Instructions for Treatment How to Access Health Informa tion Online using Patient Portal and [employer] Apps Indication:BMI 37.0-37.9, adult Start:20-Jul-2022 Instruction Type:Patient Education Patient Instructions Indication:Non-smoker Start:26-Jun-2022 Instruction Type:Provider Instructions for Treatment How to Access Health Informa tion Online using Patient Portal and [employer] Indication:Non-smoker Start:26-Jun-2022 Instruction Type:Patient Education How to Access Health Informa tion Online using Patient Portal and [employer] Indication:BMI 38.0-38.9,adult Start:03-Nov-2021 Instruction Type:Patient Education Patient Instructions Indication:BMI 38.0-38.9,adult Start:03-Nov-2021 Instruction Type:Provider Instructions for Treatment Patient Instructions Indication:Non-smoker Start:27-Jun-2021 Instruction Type:Provider Instructions for Treatment How to Access Health Informa tion Online using Patient Portal and [employer] Indication:Non-smoker Start:27-Jun-2021 Instruction Type:Patient Education Patient Instructions Indication:BMI 38.0-38.9,adult Start:13-Jun-2021 Instruction Type:Provider Instructions for Treatment How to Access Health Informa tion Online using Patient Portal and [employer] Indication:BMI 38.0-38.9,adult Start:13-Jun-2021 Instruction Type:Patient Education How to access health informa tion online Indication:Non-smoker Start:17-Jun-2020 Instruction Type:Patient Education How to access health informa tion online - Detail Indication:Non-smoker Start:17-Jun-2020 Instruction Type:Patient Education Patient Instructions Indication:Non-smoker Start:17-Jun-2020 Instruction Type:Provider Instructions for Treatment How to access health informa tion online Indication:Non-smoker Start:07-Jun-2020 Instruction Type:Patient Education How to access health informa tion online - Detail Indication:Non-smoker Start:07-Jun-2020 Instruction Type:Patient Education Patient Instructions Indication:Non-smoker Start:07-Jun-2020 Instruction Type:Provider Instructions for Treatment How to access health informa tion online Indication:Non-smoker Start:27-Dec-2016 Instruction Type:Patient Education How to access health informa tion online - Detail Indication:Non-smoker Start:27-Dec-2016 Instruction Type:Patient Education Patient Instructions Indication:Non-smoker Start:27-Dec-2016 Instruction Type:Provider Instructions for Treatment How to access health informa tion online Indication:Chest pain at rest Start:21-Dec-2016 Instruction Type:Patient Education How to access health informa tion online - Detail Indication:Chest pain at rest Start:21-Dec-2016 Instruction Type:Patient Education Patient Instructions Indication:Chest pain at rest Start:21-Dec-2016 Instruction Type:Provider Instructions for Treatment How to access health informa tion online Indication:GERD (gastroesophageal reflux disease) Start:05-May-2016 Instruction Type:Patient Education How to access health informa tion online - Detail Indication:GERD (gastroesophageal reflux disease) Start:05-May-2016 Instruction Type:Patient Education Patient Instructions Indication:GERD (gastroesophageal reflux disease) Start:05-May-2016 Instruction Type:Provider Instructions for Treatment How to access health informa tion online Indication:Cough Start:27-Jan-2016 Instruction Type:Patient Education How to access health informa tion online - Detail Indication:Cough Start:27-Jan-2016 Instruction Type:Patient Education Patient Instructions Indication:Cough Start:27-Jan-2016 Instruction Type:Provider Instructions for Treatment How to access health informa tion online Indication:Obesity Start:20-Apr-2015 Instruction Type:Patient Education How to access health informa tion online - Detail Indication:Obesity Start:20-Apr-2015 Instruction Type:Patient Education Patient Instructions Indication:Obesity Start:20-Apr-2015 Instruction Type:Provider Instructions for Treatment How to access health informa tion online Indication:Hypertension Start:06-Apr-2015 Instruction Type:Patient Education How to access health informa tion online - Detail Indication:Hypertension Start:06-Apr-2015 Instruction Type:Patient Education Patient Instructions Indication:Hypertension Start:06-Apr-2015 Instruction Type:Provider Instructions for Treatment [facility]; [facility] Work Phone: Instructions* Name Dates Details Patient Instructions Indication:Non-smoker Start:05-Mar-2023 Instruction Type:Provider Instructions for Treatment How to Access Health Informa tion Online using Patient Portal and [employer] Apps Indication:Non-smoker Start:05-Mar-2023 Instruction Type:Patient Education Patient Instructions Indication:BMI 37.0-37.9, adult Start:20-Jul-2022 Instruction Type:Provider Instructions for Treatment How to Access Health Informa tion Online using Patient Portal and [employer] Indication:BMI 37.0-37.9, adult Start:20-Jul-2022 Instruction Type:Patient Education Patient Instructions Indication:Non-smoker Start:26-Jun-2022 Instruction Type:Provider Instructions for Treatment How to Access Health Informa tion Online using Patient Portal and [employer] Indication:Non-smoker Start:26-Jun-2022 Instruction Type:Patient Education How to Access Health Informa tion Online using Patient Portal and [employer] Indication:BMI 38.0-38.9,adult Start:03-Nov-2021 Instruction Type:Patient Education Patient Instructions Indication:BMI 38.0-38.9,adult Start:03-Nov-2021 Instruction Type:Provider Instructions for Treatment Patient Instructions Indication:Non-smoker Start:27-Jun-2021 Instruction Type:Provider Instructions for Treatment How to Access Health Informa tion Online using Patient Portal and [employer] Indication:Non-smoker Start:27-Jun-2021 Instruction Type:Patient Education Patient Instructions Indication:BMI 38.0-38.9,adult Start:13-Jun-2021 Instruction Type:Provider Instructions for Treatment How to Access Health Informa tion Online using Patient Portal and [employer] Indication:BMI 38.0-38.9,adult Start:13-Jun-2021 Instruction Type:Patient Education How to access health informa tion online Indication:Non-smoker Start:17-Jun-2020 Instruction Type:Patient Education How to access health informa tion online - Detail Indication:Non-smoker Start:17-Jun-2020 Instruction Type:Patient Education Patient Instructions Indication:Non-smoker Start:17-Jun-2020 Instruction Type:Provider Instructions for Treatment How to access health informa tion online Indication:Non-smoker Start:07-Jun-2020 Instruction Type:Patient Education How to access health informa tion online - Detail Indication:Non-smoker Start:07-Jun-2020 Instruction Type:Patient Education Patient Instructions Indication:Non-smoker Start:07-Jun-2020 Instruction Type:Provider Instructions for Treatment How to access health informa tion online Indication:Non-smoker Start:27-Dec-2016 Instruction Type:Patient Education How to access health informa tion online - Detail Indication:Non-smoker Start:27-Dec-2016 Instruction Type:Patient Education Patient Instructions Indication:Non-smoker Start:27-Dec-2016 Instruction Type:Provider Instructions for Treatment How to access health informa tion online Indication:Chest pain at rest Start:21-Dec-2016 Instruction Type:Patient Education How to access health informa tion online - Detail Indication:Chest pain at rest Start:21-Dec-2016 Instruction Type:Patient Education Patient Instructions Indication:Chest pain at rest Start:21-Dec-2016 Instruction Type:Provider Instructions for Treatment How to access health informa tion online Indication:GERD (gastroesophageal reflux disease) Start:05-May-2016 Instruction Type:Patient Education How to access health informa tion online - Detail Indication:GERD (gastroesophageal reflux disease) Start:05-May-2016 Instruction Type:Patient Education Patient Instructions Indication:GERD (gastroesophageal reflux disease) Start:05-May-2016 Instruction Type:Provider Instructions for Treatment How to access health informa tion online Indication:Cough Start:27-Jan-2016 Instruction Type:Patient Education How to access health informa tion online - Detail Indication:Cough Start:27-Jan-2016 Instruction Type:Patient Education Patient Instructions Indication:Cough Start:27-Jan-2016 Instruction Type:Provider Instructions for Treatment How to access health informa tion online Indication:Obesity Start:20-Apr-2015 Instruction Type:Patient Education How to access health informa tion online - Detail Indication:Obesity Start:20-Apr-2015 Instruction Type:Patient Education Patient Instructions Indication:Obesity Start:20-Apr-2015 Instruction Type:Provider Instructions for Treatment How to access health informa tion online Indication:Hypertension Start:06-Apr-2015 Instruction Type:Patient Education How to access health informa tion online - Detail Indication:Hypertension Start:06-Apr-2015 Instruction Type:Patient Education Patient Instructions Indication:Hypertension Start:06-Apr-2015 Instruction Type:Provider Instructions for Treatment [facility]; [facility] Work Phone: Family History No Family History Records FoundUnknown Family Member Name Dates Details Father Comments:na Status:Active Maternal Grandfather Comments:htn, thyroid, dm, b kimmie cell ca Status:Active Maternal Grandmother Comments:htn, chf, cholester ol Status:Active Mother Comments:htn, cholesterol, a nxiety, stage 1 melanoma Status:Active Paternal Grandfather Comments:leukemia Status:Active Paternal Grandmother Comments:lung ca Status:Active Sister 1 Comments:depression Status:Active Unknown Family Member Name Dates Details Father Comments:na Status:Active Maternal Grandfather Comments:htn, thyroid, dm, b kimmie cell ca Status:Active Maternal Grandmother Comments:htn, chf, cholester ol Status:Active Mother Comments:htn, cholesterol, a nxiety, stage 1 melanoma Status:Active Paternal Grandfather Comments:leukemia Status:Active Paternal Grandmother Comments:lung ca Status:Active Sister 1 Comments:depression Status:Active Unknown Family Member Name Dates Details Father Comments:na Status:Active Maternal Grandfather Comments:htn, thyroid, dm, b kimmie cell ca Status:Active Maternal Grandmother Comments:htn, chf, cholester ol Status:Active Mother Comments:htn, cholesterol, a nxiety, stage 1 melanoma Status:Active Paternal Grandfather Comments:leukemia Status:Active Paternal Grandmother Comments:lung ca Status:Active Sister 1 Comments:depression Status:Active Unknown Family Member Name Dates Details Father Comments:na Status:Active Maternal Grandfather Comments:htn, thyroid, dm, b kimmie cell ca Status:Active Maternal Grandmother Comments:htn, chf, cholester ol Status:Active Mother Comments:htn, cholesterol, a nxiety, stage 1 melanoma Status:Active Paternal Grandfather Comments:leukemia Status:Active Paternal Grandmother Comments:lung ca Status:Active Sister 1 Comments:depression Status:Active Unknown Family Member Name Dates Details Father Comments:na Status:Active Maternal Grandfather Comments:htn, thyroid, dm, b kimmie cell ca Status:Active Maternal Grandmother Comments:htn, chf, cholester ol Status:Active Mother Comments:htn, cholesterol, a nxiety, stage 1 melanoma Status:Active Paternal Grandfather Comments:leukemia Status:Active Paternal Grandmother Comments:lung ca Status:Active Sister 1 Comments:depression Status:Active Unknown Family Member Name Dates Details Father Comments:na Status:Active Maternal Grandfather Comments:htn, thyroid, dm, b kimmie cell ca Status:Active Maternal Grandmother Comments:htn, chf, cholester ol Status:Active Mother Comments:htn, cholesterol, a nxiety, stage 1 melanoma Status:Active Paternal Grandfather Comments:leukemia Status:Active Paternal Grandmother Comments:lung ca Status:Active Sister 1 Comments:depression Status:Active Unknown Family Member Name Dates Details Father Comments:na Status:Active Maternal Grandfather Comments:htn, thyroid, dm, b kimmie cell ca Status:Active Maternal Grandmother Comments:htn, chf, cholester ol Status:Active Mother Comments:htn, cholesterol, a nxiety, stage 1 melanoma Status:Active Paternal Grandfather Comments:leukemia Status:Active Paternal Grandmother Comments:lung ca Status:Active Sister 1 Comments:depression Status:Active Unknown Family Member Name Dates Details Father Comments:na Status:Active Maternal Grandfather Comments:htn, thyroid, dm, b kimmie cell ca Status:Active Maternal Grandmother Comments:htn, chf, cholester ol Status:Active Mother Comments:htn, cholesterol, a nxiety, stage 1 melanoma Status:Active Paternal Grandfather Comments:leukemia Status:Active Paternal Grandmother Comments:lung ca Status:Active Sister 1 Comments:depression Status:Active Unknown Family Member Name Dates Details Father Comments:na Status:Active Maternal Grandfather Comments:htn, thyroid, dm, b kimmie cell ca Status:Active Maternal Grandmother Comments:htn, chf, cholester ol Status:Active Mother Comments:htn, cholesterol, a nxiety, stage 1 melanoma Status:Active Paternal Grandfather Comments:leukemia Status:Active Paternal Grandmother Comments:lung ca Status:Active Sister 1 Comments:depression Status:Active Unknown Family Member Name Dates Details Father Comments:na Status:Active Maternal Grandfather Comments:htn, thyroid, dm, b kimmie cell ca Status:Active Maternal Grandmother Comments:htn, chf, cholester ol Status:Active Mother Comments:htn, cholesterol, a nxiety, stage 1 melanoma Status:Active Paternal Grandfather Comments:leukemia Status:Active Paternal Grandmother Comments:lung ca Status:Active Sister 1 Comments:depression Status:Active Unknown Family Member Name Dates Details Father Comments:na Status:Active Maternal Grandfather Comments:htn, thyroid, dm, b kimmie cell ca Status:Active Maternal Grandmother Comments:htn, chf, cholester ol Status:Active Mother Comments:htn, cholesterol, a nxiety, stage 1 melanoma Status:Active Paternal Grandfather Comments:leukemia Status:Active Paternal Grandmother Comments:lung ca Status:Active Sister 1 Comments:depression Status:Active Unknown Family Member Name Dates Details Father Comments:na Status:Active Maternal Grandfather Comments:htn, thyroid, dm, b kimmie cell ca Status:Active Maternal Grandmother Comments:htn, chf, cholester ol Status:Active Mother Comments:htn, cholesterol, a nxiety, stage 1 melanoma Status:Active Paternal Grandfather Comments:leukemia Status:Active Paternal Grandmother Comments:lung ca Status:Active Sister 1 Comments:depression Status:Active Unknown Family Member Name Dates Details Father Comments:na Status:Active Maternal Grandfather Comments:htn, thyroid, dm, b kimmie cell ca Status:Active Maternal Grandmother Comments:htn, chf, cholester ol Status:Active Mother Comments:htn, cholesterol, a nxiety, stage 1 melanoma Status:Active Paternal Grandfather Comments:leukemia Status:Active Paternal Grandmother Comments:lung ca Status:Active Sister 1 Comments:depression Status:Active Unknown Family Member Name Dates Details Father Comments:na Status:Active Maternal Grandfather Comments:htn, thyroid, dm, b kimmie cell ca Status:Active Maternal Grandmother Comments:htn, chf, cholester ol Status:Active Mother Comments:htn, cholesterol, a nxiety, stage 1 melanoma Status:Active Paternal Grandfather Comments:leukemia Status:Active Paternal Grandmother Comments:lung ca Status:Active Sister 1 Comments:depression Status:Active Unknown Family Member Name Dates Details Father Comments:na Status:Active Maternal Grandfather Comments:htn, thyroid, dm, b kimmie cell ca Status:Active Maternal Grandmother Comments:htn, chf, cholester ol Status:Active Mother Comments:htn, cholesterol, a nxiety, stage 1 melanoma Status:Active Paternal Grandfather Comments:leukemia Status:Active Paternal Grandmother Comments:lung ca Status:Active Sister 1 Comments:depression Status:Active Instructions Name Dates Details How to access health informa tion online Indication:Non-smoker Start:07-Jun-2020 Instruction Type:Patient Education How to access health informa tion online - Detail Indication:Non-smoker Start:07-Jun-2020 Instruction Type:Patient Education Patient Instructions Indication:Non-smoker Start:07-Jun-2020 Instruction Type:Provider Instructions for Treatment How to access health informa tion online Indication:Non-smoker Start:27-Dec-2016 Instruction Type:Patient Education How to access health informa tion online - Detail Indication:Non-smoker Start:27-Dec-2016 Instruction Type:Patient Education Patient Instructions Indication:Non-smoker Start:27-Dec-2016 Instruction Type:Provider Instructions for Treatment How to access health informa tion online Indication:Chest pain at rest Start:21-Dec-2016 Instruction Type:Patient Education How to access health informa tion online - Detail Indication:Chest pain at rest Start:21-Dec-2016 Instruction Type:Patient Education Patient Instructions Indication:Chest pain at rest Start:21-Dec-2016 Instruction Type:Provider Instructions for Treatment How to access health informa tion online Indication:GERD (gastroesophageal reflux disease) Start:05-May-2016 Instruction Type:Patient Education How to access health informa tion online - Detail Indication:GERD (gastroesophageal reflux disease) Start:05-May-2016 Instruction Type:Patient Education Patient Instructions Indication:GERD (gastroesophageal reflux disease) Start:05-May-2016 Instruction Type:Provider Instructions for Treatment How to access health informa tion online Indication:Cough Start:27-Jan-2016 Instruction Type:Patient Education How to access health informa tion online - Detail Indication:Cough Start:27-Jan-2016 Instruction Type:Patient Education Patient Instructions Indication:Cough Start:27-Jan-2016 Instruction Type:Provider Instructions for Treatment How to access health informa tion online Indication:Obesity Start:20-Apr-2015 Instruction Type:Patient Education How to access health informa tion online - Detail Indication:Obesity Start:20-Apr-2015 Instruction Type:Patient Education Patient Instructions Indication:Obesity Start:20-Apr-2015 Instruction Type:Provider Instructions for Treatment How to access health informa tion online Indication:Hypertension Start:06-Apr-2015 Instruction Type:Patient Education How to access health informa tion online - Detail Indication:Hypertension Start:06-Apr-2015 Instruction Type:Patient Education Patient Instructions Indication:Hypertension Start:06-Apr-2015 Instruction Type:Provider Instructions for Treatment Name Dates Details How to access health informa tion online Indication:Non-smoker Start:07-Jun-2020 Instruction Type:Patient Education How to access health informa tion online - Detail Indication:Non-smoker Start:07-Jun-2020 Instruction Type:Patient Education Patient Instructions Indication:Non-smoker Start:07-Jun-2020 Instruction Type:Provider Instructions for Treatment How to access health informa tion online Indication:Non-smoker Start:27-Dec-2016 Instruction Type:Patient Education How to access health informa tion online - Detail Indication:Non-smoker Start:27-Dec-2016 Instruction Type:Patient Education Patient Instructions Indication:Non-smoker Start:27-Dec-2016 Instruction Type:Provider Instructions for Treatment How to access health informa tion online Indication:Chest pain at rest Start:21-Dec-2016 Instruction Type:Patient Education How to access health informa tion online - Detail Indication:Chest pain at rest Start:21-Dec-2016 Instruction Type:Patient Education Patient Instructions Indication:Chest pain at rest Start:21-Dec-2016 Instruction Type:Provider Instructions for Treatment How to access health informa tion online Indication:GERD (gastroesophageal reflux disease) Start:05-May-2016 Instruction Type:Patient Education How to access health informa tion online - Detail Indication:GERD (gastroesophageal reflux disease) Start:05-May-2016 Instruction Type:Patient Education Patient Instructions Indication:GERD (gastroesophageal reflux disease) Start:05-May-2016 Instruction Type:Provider Instructions for Treatment How to access health informa tion online Indication:Cough Start:27-Jan-2016 Instruction Type:Patient Education How to access health informa tion online - Detail Indication:Cough Start:27-Jan-2016 Instruction Type:Patient Education Patient Instructions Indication:Cough Start:27-Jan-2016 Instruction Type:Provider Instructions for Treatment How to access health informa tion online Indication:Obesity Start:20-Apr-2015 Instruction Type:Patient Education How to access health informa tion online - Detail Indication:Obesity Start:20-Apr-2015 Instruction Type:Patient Education Patient Instructions Indication:Obesity Start:20-Apr-2015 Instruction Type:Provider Instructions for Treatment How to access health informa tion online Indication:Hypertension Start:06-Apr-2015 Instruction Type:Patient Education How to access health informa tion online - Detail Indication:Hypertension Start:06-Apr-2015 Instruction Type:Patient Education Patient Instructions Indication:Hypertension Start:06-Apr-2015 Instruction Type:Provider Instructions for Treatment Name Dates Details How to access health informa tion online Indication:Non-smoker Start:17-Jun-2020 Instruction Type:Patient Education How to access health informa tion online - Detail Indication:Non-smoker Start:17-Jun-2020 Instruction Type:Patient Education Patient Instructions Indication:Non-smoker Start:17-Jun-2020 Instruction Type:Provider Instructions for Treatment How to access health informa tion online Indication:Non-smoker Start:07-Jun-2020 Instruction Type:Patient Education How to access health informa tion online - Detail Indication:Non-smoker Start:07-Jun-2020 Instruction Type:Patient Education Patient Instructions Indication:Non-smoker Start:07-Jun-2020 Instruction Type:Provider Instructions for Treatment How to access health informa tion online Indication:Non-smoker Start:27-Dec-2016 Instruction Type:Patient Education How to access health informa tion online - Detail Indication:Non-smoker Start:27-Dec-2016 Instruction Type:Patient Education Patient Instructions Indication:Non-smoker Start:27-Dec-2016 Instruction Type:Provider Instructions for Treatment How to access health informa tion online Indication:Chest pain at rest Start:21-Dec-2016 Instruction Type:Patient Education How to access health informa tion online - Detail Indication:Chest pain at rest Start:21-Dec-2016 Instruction Type:Patient Education Patient Instructions Indication:Chest pain at rest Start:21-Dec-2016 Instruction Type:Provider Instructions for Treatment How to access health informa tion online Indication:GERD (gastroesophageal reflux disease) Start:05-May-2016 Instruction Type:Patient Education How to access health informa tion online - Detail Indication:GERD (gastroesophageal reflux disease) Start:05-May-2016 Instruction Type:Patient Education Patient Instructions Indication:GERD (gastroesophageal reflux disease) Start:05-May-2016 Instruction Type:Provider Instructions for Treatment How to access health informa tion online Indication:Cough Start:27-Jan-2016 Instruction Type:Patient Education How to access health informa tion online - Detail Indication:Cough Start:27-Jan-2016 Instruction Type:Patient Education Patient Instructions Indication:Cough Start:27-Jan-2016 Instruction Type:Provider Instructions for Treatment How to access health informa tion online Indication:Obesity Start:20-Apr-2015 Instruction Type:Patient Education How to access health informa tion online - Detail Indication:Obesity Start:20-Apr-2015 Instruction Type:Patient Education Patient Instructions Indication:Obesity Start:20-Apr-2015 Instruction Type:Provider Instructions for Treatment How to access health informa tion online Indication:Hypertension Start:06-Apr-2015 Instruction Type:Patient Education How to access health informa tion online - Detail Indication:Hypertension Start:06-Apr-2015 Instruction Type:Patient Education Patient Instructions Indication:Hypertension Start:06-Apr-2015 Instruction Type:Provider Instructions for Treatment Name Dates Details How to access health informa tion online Indication:Non-smoker Start:17-Jun-2020 Instruction Type:Patient Education How to access health informa tion online - Detail Indication:Non-smoker Start:17-Jun-2020 Instruction Type:Patient Education Patient Instructions Indication:Non-smoker Start:17-Jun-2020 Instruction Type:Provider Instructions for Treatment How to access health informa tion online Indication:Non-smoker Start:07-Jun-2020 Instruction Type:Patient Education How to access health informa tion online - Detail Indication:Non-smoker Start:07-Jun-2020 Instruction Type:Patient Education Patient Instructions Indication:Non-smoker Start:07-Jun-2020 Instruction Type:Provider Instructions for Treatment How to access health informa tion online Indication:Non-smoker Start:27-Dec-2016 Instruction Type:Patient Education How to access health informa tion online - Detail Indication:Non-smoker Start:27-Dec-2016 Instruction Type:Patient Education Patient Instructions Indication:Non-smoker Start:27-Dec-2016 Instruction Type:Provider Instructions for Treatment How to access health informa tion online Indication:Chest pain at rest Start:21-Dec-2016 Instruction Type:Patient Education How to access health informa tion online - Detail Indication:Chest pain at rest Start:21-Dec-2016 Instruction Type:Patient Education Patient Instructions Indication:Chest pain at rest Start:21-Dec-2016 Instruction Type:Provider Instructions for Treatment How to access health informa tion online Indication:GERD (gastroesophageal reflux disease) Start:05-May-2016 Instruction Type:Patient Education How to access health informa tion online - Detail Indication:GERD (gastroesophageal reflux disease) Start:05-May-2016 Instruction Type:Patient Education Patient Instructions Indication:GERD (gastroesophageal reflux disease) Start:05-May-2016 Instruction Type:Provider Instructions for Treatment How to access health informa tion online Indication:Cough Start:27-Jan-2016 Instruction Type:Patient Education How to access health informa tion online - Detail Indication:Cough Start:27-Jan-2016 Instruction Type:Patient Education Patient Instructions Indication:Cough Start:27-Jan-2016 Instruction Type:Provider Instructions for Treatment How to access health informa tion online Indication:Obesity Start:20-Apr-2015 Instruction Type:Patient Education How to access health informa tion online - Detail Indication:Obesity Start:20-Apr-2015 Instruction Type:Patient Education Patient Instructions Indication:Obesity Start:20-Apr-2015 Instruction Type:Provider Instructions for Treatment How to access health informa tion online Indication:Hypertension Start:06-Apr-2015 Instruction Type:Patient Education How to access health informa tion online - Detail Indication:Hypertension Start:06-Apr-2015 Instruction Type:Patient Education Patient Instructions Indication:Hypertension Start:06-Apr-2015 Instruction Type:Provider Instructions for Treatment Name Dates Details How to access health informa tion online Indication:Non-smoker Start:27-Dec-2016 Instruction Type:Patient Education How to access health informa tion online - Detail Indication:Non-smoker Start:27-Dec-2016 Instruction Type:Patient Education Patient Instructions Indication:Non-smoker Start:27-Dec-2016 Instruction Type:Provider Instructions for Treatment How to access health informa tion online Indication:Chest pain at rest Start:21-Dec-2016 Instruction Type:Patient Education How to access health informa tion online - Detail Indication:Chest pain at rest Start:21-Dec-2016 Instruction Type:Patient Education Patient Instructions Indication:Chest pain at rest Start:21-Dec-2016 Instruction Type:Provider Instructions for Treatment How to access health informa tion online Indication:GERD (gastroesophageal reflux disease) Start:05-May-2016 Instruction Type:Patient Education How to access health informa tion online - Detail Indication:GERD (gastroesophageal reflux disease) Start:05-May-2016 Instruction Type:Patient Education Patient Instructions Indication:GERD (gastroesophageal reflux disease) Start:05-May-2016 Instruction Type:Provider Instructions for Treatment How to access health informa tion online Indication:Cough Start:27-Jan-2016 Instruction Type:Patient Education How to access health informa tion online - Detail Indication:Cough Start:27-Jan-2016 Instruction Type:Patient Education Patient Instructions Indication:Cough Start:27-Jan-2016 Instruction Type:Provider Instructions for Treatment How to access health informa tion online Indication:Obesity Start:20-Apr-2015 Instruction Type:Patient Education How to access health informa tion online - Detail Indication:Obesity Start:20-Apr-2015 Instruction Type:Patient Education Patient Instructions Indication:Obesity Start:20-Apr-2015 Instruction Type:Provider Instructions for Treatment How to access health informa tion online Indication:Hypertension Start:06-Apr-2015 Instruction Type:Patient Education How to access health informa tion online - Detail Indication:Hypertension Start:06-Apr-2015 Instruction Type:Patient Education Patient Instructions Indication:Hypertension Start:06-Apr-2015 Instruction Type:Provider Instructions for Treatment Summary Purpose Advance Directives No Advanced Directives Records Found Name Dates Details Immunization Registry [place] - Effective on 06/26/2022. Expiration date unspecified Effective:26-Jun-2022 Name Dates Details Immunization Registry [place] - Effective on 06/26/2022. Expiration date unspecified Effective:26-Jun-2022 Name Dates Details Immunization Registry [place] - Effective on 06/26/2022. Expiration date unspecified Effective:26-Jun-2022 Name Dates Details Immunization Registry [place] - Effective on 06/26/2022. Expiration date unspecified Effective:26-Jun-2022 Name Dates Details Immunization Registry [place] - Effective on 06/26/2022. Expiration date unspecified Effective:26-Jun-2022 Name Dates Details Immunization Registry [place] - Effective on 06/26/2022. Expiration date unspecified Effective:26-Jun-2022 Name Dates Details Immunization Registry [place] - Effective on 06/26/2022. Expiration date unspecified Effective:26-Jun-2022 Additional Source Comments INFORMATION SOURCE (unrecogn ized section and content) DATE CREATED AUTHOR AUTHOR'S ORGANIZ ATION 07/22/2021 [facility] DATE CREATED AUTHOR AUTHOR'S ORGANIZ ATION 06/29/2022 [facility] DATE CREATED AUTHOR AUTHOR'S ORGANIZ ATION 03/01/2023 [facility] DATE CREATED AUTHOR AUTHOR'S ORGANIZ ATION 05/17/2023 [facility] Source Comments (unrecognize d section and content) In the event this informatio n is protected by the Federal Confidentiality of Alcohol and Drug Abuse Patient Records regulations: The Federal rules restrict any use of the information to criminally investigate or prosecute any alcohol or drug abuse patient.[facility] Care Teams (unrecognized sec tion and content) FOR RECORDS PERTAINING TO PATIENTS WHO ARE OR HAVE BEEN ENROLLED IN A CHEMICAL DEPENDENCY/SUBSTANCEABUSE PROGRAM, SOME INFORMATION MAY BE OMITTED. This clinical summary was aggregated from multiple sources. Caution should be exercised in using it in the provision of clinical care. This summary normalizes information from multiple sources, and as a consequence, information in this document may materially change the coding, format and clinical context of patient data. In addition, data may be omitted in some cases. CLINICAL DECISIONS SHOULD BE BASED ON THE PRIMARY CLINICAL RECORDS. [employer] [facility]. provides no warranty or guarantee of the accuracy or completeness of information in this document.
== END | disposition home or self-care (01) ==
LOC: CVS 12:49
PROVIDERS: PCP Internal Medicine; Referring Provider Internal Medicine; Visit Provider Internal Medicine
DX: R00.2 Palpitations (principal)
CPT/HCPCS: 93306

== ENCOUNTER → 2025-07-15 | Outpatient (CLI) | payer OTHER, SELFPAY ==
[2025-07-15 10:55] LABS: Mucous, Urine 0 SEEN /hpf (<or=2+); Red Blood Cells-Urine 0 SEEN /hpf (0-5)
[2025-07-15 12:35] LABS: Hematocrit 41.4 % (37-47); Hemoglobin 13.8 g/dL (12.0-15.0); Immature Granulocytes Count 0.020 X10^3/uL (0.0-0.0); Mean Corp Hgb Conc 33.3 g/dL (32-36); Mean Corpuscular Volume 91.0 fL (81-99); Mean Platelet Vol. 11.0 fl (6.2-12.0); NRBC Flagged by Analyzer 0 % (0-5); Platelet Count 261 K/mm3 (150-450); RBC Distribution Width CV 12.2 % (11.6-14.6); RBC Distribution Width SD 40.5 fl (35.1-43.9); Red Blood Count 4.55 M/mm3 (4.2-5.4); White Blood Count 8.0 K/mm3 (4.4-11.0)
[2025-07-15 12:43] LABS: Color, Urine Yellow (Yellow); Glucose, Dipstick Normal (Normal); Ketone-Dipstick Negative (Negative); Leukocyte Esterase-Dipstick 100 /ul (Negative); Nitrite-Dipstick Negative (Negative); Occult Blood-Urine 10 /ul (Negative); Protein-Dipstick Negative (Negative); Specific Gravity, Urine 1.020 (1.002-1.030); Urine Bilirubin Dipstick Negative (Negative)
[2025-07-15 13:03] LABS: Squamous Epithelial Cells - UA 5-10 SEEN /hpf (5-10)
[2025-07-15 13:09] LABS: AST(SGOT) 23 U/L (<=31); Alanine Aminotransfer ALT/SGPT 30 U/L (<=34); Albumin, Serum 4.5 g/dL (3.5-5.0); Alkaline Phosphatase 86 U/L (35-104); Anion Gap 12 (5-15); BUN 18 mg/dL (4-19); BUN/Creat Ratio 20.3 RATIO (10-20); Calcium,Total 9.8 mg/dL (7.6-11.0); Carbon Dioxide 26.5 mmol/L (21.0-32.0); Chloride 103 mmol/L (98-108); Cholesterol 314 mg/dL (<=200); Globulin 3.2 g/dL (2.2-4.2); Glucose 102 mg/dL (70-99); Low Density Lipoprotein Calc. 220 mg/dL; Potassium 5.0 mmol/L (3.3-5.1); Triglycerides 173 mg/dL; Very Low Density Lipoprotein 35 mg/dL (5-40); cholesterol:hdl ratio screen 5.12
[2025-07-15 13:22] LABS: Creatinine, Urine (random) 93.60 mg/dL (28.00-217.00); Microalbumin,Random Urine 18.1 mg/L (<20 mg/L)
== END | disposition home or self-care (01) ==
LOC: CIMLAB 10:53
PROVIDERS: PCP Internal Medicine; Referring Provider Internal Medicine; Visit Provider Internal Medicine
DX: Z00.01 Encounter for general adult medical examination with abnormal findings (principal); E78.00 Pure hypercholesterolemia, unspecified; E66.9 Obesity, unspecified; I10 Essential (primary) hypertension; R25.2 Cramp and spasm
CPT/HCPCS: 36415; 80053; 80061; 81001; 82043; 82570; 84443; 85025